=== PATIENT | female | born 1995 | race Caucasian/White ===

== ENCOUNTER 2023-12-25 14:00 | Emergency (ER) | payer BC, SELFPAY ==
--- NOTE | 2023-12-25 14:10 | ED.URI ---
HPI - URI/Sore Throat General Chief Complaint: Upper Respiratory Infection Stated Complaint: fever and body pain Time Seen by Provider: 12/25/23 14:10 Source: patient Mode of arrival: ambulatory Limitations: no limitations History of Present Illness HPI Narrative: Fallon is a 28-year-old female patient presenting to the clinic today with complaints of fever, body aches, chills, dizziness, sinus congestion, sore throat, and right ear pain that all started yesterday. She reports the highest fever yesterday was 101. She was 100.4 this morning. She is currently afebrile in the clinic today. Denies any dizziness at this time. MD elicited complaint: sore throat and nasal congestion Related Data Home Medications Medication Instructions Recorded Confirmed clonazepam 1 mg tablet 2 mg TID 12/25/23 12/25/23 esomeprazole magnesium 40 mg 40 mg DIRECTED 12/25/23 12/25/23 capsule,delayed release metformin 500 mg tablet,extended 500 mg PO DIRECTED 12/25/23 12/25/23 release 24 hr norelgestromin 150 mcg-e.estradiol 1 patch DIRECTED 12/25/23 12/25/23 35 mcg/24 hr weekly transderm patch Allergies Allergy/AdvReac Type Severity Reaction Status Date / Time amoxicillin [From Augmentin] AdvReac Nausea and Verified 12/25/23 14:17 Vomiting clavulanic acid AdvReac Nausea and Verified 12/25/23 14:17 [From Augmentin] Vomiting Review of Systems Review of Systems: Pertinent positives per HPI. Patient denies any rash, visual changes,shortness of breath, chest pain, palpitations, nausea, vomiting, diarrhea, constipation, abdominal pain, or any urinary issues. PMFSH Comments At the time of my signature, I reviewed and agree with the nursing past medical, surgical, social, and family history. There is no relevant family history pertinent to the patient complaint. Exam Narrative: General: Well-developed, obese, in no apparent distress Head: Normocephalic, atraumatic Eyes: Pupils equally round and reactive to light bilaterally, EOM intact, sclera and conjunctive clear, no discharge, lids normal Ears: Left TMs intact and clear, right TM intact, congested, nonbulging, ear canals clear, no drainage, grossly hearing normal. Nose: Nares patent, clear nasal discharge, mild inflammation, no sinus tenderness. Mouth: Oral pharynx red without lesions or masses, good dentition, MMM. Neck: Supple, trachea midline, no enlargement of anterior or posterior cervical nodes, no thyroid masses or goiter palpable. Cardio: Regular rate and rhythm, s1 and s2 normal, no murmur appreciated. Resp: Clear to auscultation bilaterally, no rhonchi, rales, wheezing or rubs Course Course Emergency Course: Portions of this record may have been created with voice recognition software. Level of Care: Express Care Visit Vital Signs Vital signs: Vital signs reviewed MDM - URI/Sore Throat MDM Narrative Medical decision making narrative: At the time of visit patient is resting comfortably on the exam table. Patient appears to be nontoxic. Labs: COVID, influenza, and strep test were performed. Strep and influenza testing was negative. COVID test was positive. Plan: I suspect patient has COVID. She is denying any chest pain or shortness of breath at this time. Supportive measures were discussed with the patient and they voiced understanding discharge instructions and agrees to treatment plan. Return precautions reviewed Differential Diagnosis Differential diagnosis: Likely upper respiratory infection, otitis media, sinusitis, viral infection, bronchitis, influenza, pharyngitis and other (COVID) Discharge Plan Discharge Clinical Impression: COVID-19 Patient Disposition: Home, Self-Care Condition: Stable Instructions: Antibiotic Form, How to Recover from COVID-19 at Home (ED) Additional Instructions: COVID testing is positive in the clinic today. Influenza and strep test were negative. We will send strep for culture if this comes back positive we will contact him place you on antibiotics at that time. May take DayQuil/NyQuil for cold/flu symptoms Increase fluids and stay well hydrated Tylenol/motrin for pain/fever Flonase and OTC antihistamines as directed Vicks vapor rub to open sinuses Sinus rinses for congestion Cepacol spray, cough drops, throat lozenges, warm tea with honey/lemon, gargle salt water to soothe throat BRAT diet for diarrhea Clear liquids x 24 hours then advance as tolerated for nausea/vomiting Go to the ED if you develop a worsening in your condition- high fever not controlled by Tylenol or Motrin, dehydration, weakness, lethargy, shortness of breath, or chest pain. Follow up with your PCP in 3-5 days if symptoms persist. Prescriptions: No Action clonazepam 1 mg tablet 2 mg TID esomeprazole magnesium 40 mg capsule,delayed release(DR/EC) 40 mg DIRECTED metformin 500 mg tablet extended release 24 hr 500 mg PO DIRECTED norelgestromin-ethin.estradiol 150-35 mcg/24 hr patch weekly 1 patch DIRECTED Follow-up/Referrals: Clarissa,Bianca Almanzar APRN [Primary Care Provider] - Stand Alone Forms: Work/School Release IP Time of Disposition: 14:32 Quality NIHSS Nursing Documentation ED NIHSS nursing documentation: reviewed/agree
[2023-12-25 14:18] VITALS: BP 110/61; PULSE 93; RESP 18; TEMP 36.8; O2SAT 97
[2023-12-25 14:36] LABS: EDCOVIDSCREEN Positive (Negative); EDINFLUASCREEN Negative (Negative); EDINFLUBSCREEN Negative (Negative); EDSTREPNEGPOS1 Negative (Negative)
== END 2023-12-25 14:41 | disposition home or self-care (01) ==
PROVIDERS: Emergency Provider Nurse Practitioner Family; PCP Registered Nurse
DX: U07.1 COVID-19 (principal)
CPT/HCPCS: 87081; 87426; 87804; 87880; 99203; G0463